=== PATIENT | male | born 1940 | race Caucasian/White ===

== ENCOUNTER 2022-01-10 09:14 | Day surgery (SDC) | payer MEDICARE ==
[2022-01-10] MEDS ORDERED: LIDOCAINE HCL 2% 100 MG/5 ML IJ ONE (09:15)
[2022-01-10] MEDS ORDERED: Decadron 4 MG INJ IV ONE (09:15)
[2022-01-10] MEDS ORDERED: DIPRIVAN 200 MG/20 ML IV ONE (10:19)
[2022-01-10] MEDS ORDERED: Lactated Ringers 1,000 ML IV ONE (10:38)
--- NOTE | 2022-01-10 11:36 | XRAY ---
Indication: Left C2-C4 MBB. Intraoperative fluoroscopy provided for 27 seconds. Single lateral digital spot image submitted for interpretation demonstrates posterior needle tips projecting over the expected left C2-C4 nerve roots. Correlate with intraoperative findings/report.
--- NOTE | 2022-01-10 12:35 | XRAY ---
27 seconds fluoroscopy time in surgery for left C2-C4 MBB.
== END 2022-01-10 10:50 | disposition home or self-care (01) ==
LOC: SDC-PAIN 09:14
PROVIDERS: ATTEND Psychiatry & Neurology Pain Medicine
DX: M47.812 Spondylosis without myelopathy or radiculopathy, cervical region (principal); I10 Essential (primary) hypertension; Z79.899 Other long term (current) drug therapy
CPT/HCPCS: 64490; 64491; 72040; 77002; J1100; J2704

== ENCOUNTER 2022-02-14 09:57 | Day surgery (SDC) | payer MEDICARE ==
[2022-02-14] MEDS ORDERED: Marcaine Mpf 0.5% Vial 30 Ml IJ ONE (09:58)
[2022-02-14] MEDS ORDERED: Decadron 4 MG INJ IV ONE (09:58)
[2022-02-14] MEDS ORDERED: DIPRIVAN 200 MG/20 ML IV ONE (11:59)
[2022-02-14] MEDS ORDERED: Lactated Ringers 1,000 ML IV ONE (14:03)
--- NOTE | 2022-02-14 14:13 | XRAY ---
Indication: Left C2-C4 MBB. Intraoperative fluoroscopy provided for 11 seconds. 2 digital spot images submitted for interpretation demonstrates posterior needle tips projecting over the expected left C2-C4 nerve roots. Correlate with intraoperative findings/report.
--- NOTE | 2022-02-14 14:55 | XRAY ---
11 seconds fluoroscopy time in surgery for left C2-C4 MBB.
== END 2022-02-14 12:21 | disposition home or self-care (01) ==
LOC: SDC-PAIN 09:57
PROVIDERS: ATTEND Psychiatry & Neurology Pain Medicine
DX: M47.812 Spondylosis without myelopathy or radiculopathy, cervical region (principal); E11.9 Type 2 diabetes mellitus without complications; Z79.899 Other long term (current) drug therapy
CPT/HCPCS: 64490; 64491; 72040; 77002; 82947; J1100; J2704

== ENCOUNTER 2022-03-14 09:39 | Day surgery (SDC) | payer MEDICARE ==
[2022-03-14] MEDS ORDERED: XYLOCAINE-MPF 1% 5ML SDV IJ ONE (09:40)
[2022-03-14] MEDS ORDERED: Marcaine Mpf 0.5% Vial 30 Ml IJ ONE (09:40)
[2022-03-14] MEDS ORDERED: Decadron 4 MG INJ IV ONE (09:40)
[2022-03-14] MEDS ORDERED: DIPRIVAN 200 MG/20 ML IV ONE (11:17)
[2022-03-14] MEDS ORDERED: Lactated Ringers 1,000 ML IV ONE (12:26)
--- NOTE | 2022-03-14 12:37 | XRAY ---
20 seconds fluoroscopy time in surgery for left C2-C4 RFA.
--- NOTE | 2022-03-14 12:38 | XRAY ---
Indication: Left C2-C4 RFA. Intraoperative fluoroscopy provided for 20 seconds. 2 digital spot image submitted for interpretation demonstrates posterior needle tips projecting over the expected left C2-C4 nerve roots. Correlate with intraoperative findings/report.
== END 2022-03-14 11:45 | disposition home or self-care (01) ==
LOC: SDC-PAIN 09:39
PROVIDERS: ATTEND Psychiatry & Neurology Pain Medicine
DX: M47.812 Spondylosis without myelopathy or radiculopathy, cervical region (principal); Z79.899 Other long term (current) drug therapy
CPT/HCPCS: 01939; 64633; 64634; 72040; 77002; 99100; J1100; J2704